=== PATIENT | female | born 1950 | race Caucasian/White ===

== ENCOUNTER 2020-09-19 06:25 | Day surgery (SDC) | payer MEDICARE, OTHER, SELFPAY ==
[2020-09-13 15:18] VITALS: BMI 37.5
--- NOTE | 2020-09-15 08:20 | MHC.SHP ---
Pre-Procedural Eval Section A The patient is an INPATIENT: No The History & Physical has been completed within 30 days and I have reviewed it.: Yes Section B Chief Complaint: cataract Allergies: Allergies Allergy/AdvReac Type Severity Reaction Status Date / Time No Known Allergies Allergy Verified 09/01/20 15:48 Plan Diagnosis/Plan: Unchanged I have reviewed the history and physical and performed a pertinent physical examination on my patient. No changes have occurred unless specified.
--- NOTE | 2020-09-16 09:11 | P.CONAN_ITS ---
Documented by User: Sara Alexander 09/16/20 09:12 HPI - Anesthesia Eval Consult details Narrative: 70yo F for Left Cataract Extraction IOL Insertion No prev cataract on record [facility] Past Medical History Medical History Allergic rhinitis Asthma Carotid artery stenosis Cataracts, both eyes COPD (chronic obstructive pulmonary disease) Depression GERD (gastroesophageal reflux disease) History of positive PPD Hypercholesterolemia Hypertension Obesity On supplemental oxygen therapy NAVIN on CPAP Positional vertigo Urinary, incontinence, stress female Varicose vein of leg Surgical History Surgical History Hx of Achilles tendon repair Hx of appendectomy Hx of arthroscopic knee surgery Hx of colonoscopy Hx of hysterectomy Social History Social History Smoking Status: Former smoker Smoking Quit Date: 1987 Use of substances other than those prescribed or required for medical reasons: No Advance Directives Information Provided: No Meds Allergies Allergy/AdvReac Type Severity Reaction Status Date / Time No Known Allergies Allergy Verified 09/01/20 15:48 Home Medications Medication Instructions Recorded Confirmed Last Taken Type albuterol sulfate 1 ml INHALATION Q6H 09/13/20 09/13/20 Unknown History albuterol sulfate [Ventolin HFA] 2 puff INHALATION QID PRN 09/13/20 09/13/20 Unknown History atorvastatin 1 tab PO BEDTIME 09/13/20 09/13/20 Unknown History famotidine 1 tab PO BEDTIME 09/13/20 09/13/20 Unknown History fluticasone propion-salmeterol 1 puff PO BID 09/13/20 09/13/20 Unknown History [Advair Diskus] melatonin 3 mg PO BEDTIME PRN 09/13/20 09/13/20 Unknown History umeclidinium [Incruse Ellipta] 1 puff INHALATION DAILY 09/13/20 09/13/20 Unknown History Exam Exam Date and Time: September 16, 2020910 Height,Weight and Vital Signs: Height 5 ft 6 in Weight 105.687 kg Assessment and Plan Assessment Anesthesia Assessment: Chart Reviewed Documented by User: Yolanda Barton 09/19/20 07:57 [facility] Past Medical History Medical History Allergic rhinitis Asthma Carotid artery stenosis Cataracts, both eyes COPD (chronic obstructive pulmonary disease) Depression GERD (gastroesophageal reflux disease) History of positive PPD Hypercholesterolemia Hypertension Obesity On supplemental oxygen therapy NAVIN on CPAP Positional vertigo Urinary, incontinence, stress female Varicose vein of leg Family History Family history of problems with anesthesia: No Surgical History Surgical History Hx of Achilles tendon repair Hx of appendectomy Hx of arthroscopic knee surgery Hx of colonoscopy Hx of hysterectomy History of Problems with Anesthesia: No Social History Social History Smoking Status: Former smoker Smoking Quit Date: 1987 Use of substances other than those prescribed or required for medical reasons: No Advance Directives Information Provided: No Meds Allergies Allergy/AdvReac Type Severity Reaction Status Date / Time No Known Allergies Allergy Verified 09/01/20 15:48 Home Medications Medication Instructions Recorded Confirmed Last Taken Type albuterol sulfate 1 ml INHALATION Q6H 09/13/20 09/13/20 Unknown History albuterol sulfate [Ventolin HFA] 2 puff INHALATION QID PRN 09/13/20 09/13/20 Unknown History atorvastatin 1 tab PO BEDTIME 09/13/20 09/13/20 Unknown History famotidine 1 tab PO BEDTIME 09/13/20 09/13/20 Unknown History fluticasone propion-salmeterol 1 puff PO BID 09/13/20 09/13/20 Unknown History [Advair Diskus] melatonin 3 mg PO BEDTIME PRN 09/13/20 09/13/20 Unknown History umeclidinium [Incruse Ellipta] 1 puff INHALATION DAILY 09/13/20 09/13/20 Unknown History Exam Height,Weight and Vital Signs: Vital Signs Temp Pulse Resp BP Pulse Ox 09/19/20 07:49 98.2 F 93 16 183/79 H 96 Airway Mallampati Class: II TM Dist: >3cm Neck ROM: Full Denture: Upper Heart: RRR Lungs: CTAB Assessment and Plan Assessment Anesthesia Assessment: Anesthesia Plan Discussed and Chart Reviewed Final Anesthetic Review NPO: Yes ASA Class: III Final Preanesthetic Review: No Changes in Pt Med Stat, Meds/Allgs Chart Reviewed, Consent Obtained/Reviewed and Anes Risks/Benef Reviewed Patient Risk: Intermediate Procedure Risk: Low Assessment/Block/Sedation in SS: Assess/Block/Sedation-SS Anesthetic Plan Anesthetic Plan: MAC: Disposition: Standard PACU
[2020-09-19 07:49] VITALS: BP 183/79; PULSE 93; RESP 16; TEMP 36.8; O2SAT 96
[2020-09-19] MEDS: Tetracaine HCl/PF 0.5% Oph Sol 4 ML DROPS 1 DROP EYE-LEFT (07:54)
[2020-09-19] MEDS: Tropicamide 1 % Ophth Sol 3 ML BTL 1 DROP EYE-LEFT ×3 (07:56→08:07)
[2020-09-19] MEDS: Lactated Ringers 500 ML 50 ML IV (07:57)
[2020-09-19] MEDS: Phenylephrine HCL 2.5% Oph SoL 2 ML BOTTLE 1 DROP EYE-LEFT ×3 (08:00→08:09)
--- NOTE | 2020-09-19 09:03 | HO.PNOPHT ---
Ophthalmology Procedure Procedure Date of Service: 09/19/20 Ophthalmology Viscoelastic: Healon Duet Dual Pack Pro Ophthalmology Lenses: TECNIS [id number] (21.5) Procedure Notes: PREOPERATIVE DIAGNOSIS: Decreased visual acuity left eye secondary to cataract POSTOPERATIVE DIAGNOSIS: Same PROCEDURE: Left cataract extraction with intraocular lens insertion SURGEON: Sai Soriano M.D. ANESTHESIA: Topical/MAC ESTIMATED BLOOD LOSS: None COMPLICATIONS: None After obtaining informed consent, the patient was brought to the operation room suite and placed in the supine position. After adequate sedation per anesthesia, topical drops of Tetracaine were given to the left eye. The eye was then prepped and draped in the usual sterile fashion. The operating room microscope was then positioned over the operative eye and a lid speculum placed. A paracentesis was created. Viscoelastic was then instilled into the anterior chamber. A three plane incision was then created temporally, utilizing a 2.85 mm keratome. Capsulotomy forceps were then utilized to create a circular tear capsulotomy. Hydrodissection and hydrodelineation were carried out until adequate mobilization of the nucleus occurred. Phacoemulsification was then utilized to remove the dense central nucleus followed by removal of the cortical material utilizing the automated aspiration irrigation unit. Viscoat elastic was instilled into the posterior capsular bag followed by placement of a posterior chamber intraocular lens without difficulty. The residual Viscoat elastic was then removed utilizing the automated IA machine. The wound was check and found to be watertight. The patient tolerated the procedure well and the lid speculum was removed. Intracameral injection of Vigamox 0.1 mL followed by a subtenon injection of Kenalog-40 0.2 mL were administered. The patient will be seen in the a.m.
[2020-09-19 09:04] VITALS: BP 165/93; PULSE 80; RESP 15; TEMP 36.4; O2SAT 97
[2020-09-19] MEDS: Acetaminophen 325 MG TABLET 650 MG PO (09:05)
== END 2020-09-19 10:14 | disposition home or self-care (01) ==
PROVIDERS: PCP Internal Medicine; Visit Provider Ophthalmology
PROC: (CPT 66985; principal; 2020-09-19 08:50)
DX: H25.12 Age-related nuclear cataract, left eye (principal); I10 Essential (primary) hypertension; Z79.899 Other long term (current) drug therapy
CPT/HCPCS: 66984; J2250; J3010; J3300; V2632

== ENCOUNTER 2020-10-17 06:10 | Day surgery (SDC) | payer MEDICARE, OTHER, SELFPAY ==
[2020-10-10 15:07] VITALS: BMI 37.5
--- NOTE | 2020-10-12 16:29 | MHC.SHP ---
Pre-Procedural Eval Section A The patient is an INPATIENT: No The History & Physical has been completed within 30 days and I have reviewed it.: Yes Section B Chief Complaint: Cataract Right Eye Allergies: Allergies Allergy/AdvReac Type Severity Reaction Status Date / Time No Known Allergies Allergy Verified 09/01/20 15:48 Plan Diagnosis/Plan: Unchanged I have reviewed the history and physical and performed a pertinent physical examination on my patient. No changes have occurred unless specified.
--- NOTE | 2020-10-14 09:14 | HO.ANESPROP2 ---
Documented by User: Sara Alexander 10/14/20 09:14 HPI - Anesthesia Eval Consult details Narrative: 70yo F for Right Cataract Extraction IOL Insertion PCP cleared Left eye 09/19/20 with Fent 50 / Midaz 1 PMFSH Past Medical History Medical History Allergic rhinitis Asthma Carotid artery stenosis Cataracts, both eyes COPD (chronic obstructive pulmonary disease) Depression GERD (gastroesophageal reflux disease) History of positive PPD Hypercholesterolemia Hypertension Obesity On supplemental oxygen therapy NAVIN on CPAP Positional vertigo Urinary, incontinence, stress female Varicose vein of leg Family History Family history of problems with anesthesia: No Surgical History Surgical History History of left cataract surgery Hx of Achilles tendon repair Hx of appendectomy Hx of arthroscopic knee surgery Hx of colonoscopy Hx of hysterectomy History of Problems with Anesthesia: No Social History Social History Smoking Status: Former smoker Smoking Quit Date: 1987 Use of substances other than those prescribed or required for medical reasons: No Are you DNR?: No Advance Directives Information Provided: No Recently lost weight without trying: No Eating poorly because of decreased appetite: No Nutrition Risks: No Nutritional Risk Meds Allergies Allergy/AdvReac Type Severity Reaction Status Date / Time No Known Allergies Allergy Verified 09/01/20 15:48 Home Medications Medication Instructions Recorded Confirmed Last Taken Type albuterol sulfate 1 ml INHALATION Q6H 09/13/20 10/10/20 10/17/20 History albuterol sulfate [Ventolin HFA] 2 puff INHALATION QID PRN 09/13/20 10/10/20 Unknown History atorvastatin 1 tab PO BEDTIME 09/13/20 10/10/20 Unknown History famotidine 1 tab PO BEDTIME 09/13/20 10/10/20 Unknown History fluticasone propion-salmeterol 1 puff PO BID 09/13/20 10/17/20 10/17/20 History [Advair Diskus] 500 melatonin 3 mg PO BEDTIME PRN 09/13/20 10/10/20 Unknown History umeclidinium [Incruse Ellipta] 1 puff INHALATION DAILY 09/13/20 10/10/20 10/17/20 History Exam Exam Date and Time: October 14, 2020 0914 Height,Weight and Vital Signs: Height 5 ft 6 in Weight 105.687 kg Assessment and Plan Assessment Anesthesia Assessment: Chart Reviewed Documented by User: Jada Patten 10/17/20 07:39 [facility] Past Medical History Medical History Allergic rhinitis Asthma Carotid artery stenosis Cataracts, both eyes COPD (chronic obstructive pulmonary disease) Depression GERD (gastroesophageal reflux disease) History of positive PPD Hypercholesterolemia Hypertension Obesity On supplemental oxygen therapy NAVIN on CPAP Positional vertigo Urinary, incontinence, stress female Varicose vein of leg Surgical History Surgical History History of left cataract surgery Hx of Achilles tendon repair Hx of appendectomy Hx of arthroscopic knee surgery Hx of colonoscopy Hx of hysterectomy Social History Social History Smoking Status: Former smoker Smoking Quit Date: 1987 Use of substances other than those prescribed or required for medical reasons: No Are you DNR?: No Advance Directives Information Provided: No Recently lost weight without trying: No Eating poorly because of decreased appetite: No Nutrition Risks: No Nutritional Risk Meds Allergies Allergy/AdvReac Type Severity Reaction Status Date / Time No Known Allergies Allergy Verified 09/01/20 15:48 Home Medications Medication Instructions Recorded Confirmed Last Taken Type albuterol sulfate 1 ml INHALATION Q6H 09/13/20 10/10/20 10/17/20 History albuterol sulfate [Ventolin HFA] 2 puff INHALATION QID PRN 09/13/20 10/10/20 Unknown History atorvastatin 1 tab PO BEDTIME 09/13/20 10/10/20 Unknown History famotidine 1 tab PO BEDTIME 09/13/20 10/10/20 Unknown History fluticasone propion-salmeterol 1 puff PO BID 09/13/20 10/17/20 10/17/20 History [Advair Diskus] 500 melatonin 3 mg PO BEDTIME PRN 09/13/20 10/10/20 Unknown History umeclidinium [Incruse Ellipta] 1 puff INHALATION DAILY 09/13/20 10/10/20 10/17/20 History Exam Airway Mallampati Class: III Denture: Upper Partial: Upper
[2020-10-17 06:28] VITALS: BP 145/81; PULSE 78; RESP 24; TEMP 36.1; O2SAT 95
[2020-10-17] MEDS: Tropicamide 1 % Ophth Sol 3 ML BTL 1 DROP EYE-RIGHT ×3 (06:34→06:36)
[2020-10-17] MEDS: Tetracaine HCl/PF 0.5% Oph Sol 4 ML DROPS 1 DROP EYE-RIGHT (06:34)
[2020-10-17] MEDS: Phenylephrine HCL 2.5% Oph SoL 2 ML BOTTLE 1 DROP EYE-RIGHT ×3 (06:35→06:37)
[2020-10-17] MEDS: Lactated Ringers 500 ML 50 ML IV (06:48)
[2020-10-17 07:36] VITALS: BP 169/76
--- NOTE | 2020-10-17 07:48 | HO.PNOPHT ---
Ophthalmology Procedure Procedure Date of Service: 10/17/20 Ophthalmology Viscoelastic: Healon Duet Dual Pack Pro Ophthalmology Lenses: TECNIS [id number] (20.5) Procedure Notes: PREOPERATIVE DIAGNOSIS: Decreased visual acuity right eye secondary to cataract POSTOPERATIVE DIAGNOSIS: Same PROCEDURE: Right cataract extraction with intraocular lens insertion SURGEON: Sai Soriano M.D. ANESTHESIA: Topical/MAC ESTIMATED BLOOD LOSS: None COMPLICATIONS: None After obtaining informed consent, the patient was brought to the operating room suite and placed in the supine position. After adequate sedation per anesthesia, topical drops of Tetracaine were given to the right eye. The eye was then prepped and draped in the usual sterile fashion. The operating room microscope was then positioned over the operative eye and a lid speculum placed. A paracentesis was created. Viscoelastic was then instilled into the anterior chamber. A three plane incision was then created temporally, utilizing a 2.85 mm keratome. Capsulotomy forceps were then utilized to create a circular tear capsulotomy. Hydrodissection and hydrodelineation were carried out until adequate mobilization of the nucleus occurred. Phacoemulsification was then utilized to remove the dense central nucleus followed by removal of the cortical material utilizing the automated aspiration irrigation unit. Viscoelastic was instilled into the posterior capsular bag followed by placement of a posterior chamber intraocular lens without difficulty. The residual Viscoelastic was then removed utilizing the automated IA machine. The wound was checked and found to be watertight. The patient tolerated the procedure well and the lid speculum was removed. Intracameral injection of Vigamox 0.1 mL followed by a subtenon injection of Kenalog-40 0.2 mL were administered. The patient will be seen in the a.m.
--- NOTE | 2020-10-17 07:50 | PC.NURSE ---
pt verbalized understanding of d/c
[2020-10-17 08:11] VITALS: BP 117/72; PULSE 73; RESP 15; TEMP 36.4; O2SAT 98
== END 2020-10-17 08:46 | disposition home or self-care (01) ==
PROVIDERS: PCP Internal Medicine; Visit Provider Ophthalmology
PROC: (CPT 66985; principal; 2020-10-17 07:50)
DX: H25.11 Age-related nuclear cataract, right eye (principal); H54.7 Unspecified visual loss; D31.31 Benign neoplasm of right choroid; J44.9 Chronic obstructive pulmonary disease, unspecified; I10 Essential (primary) hypertension; H81.10 Benign paroxysmal vertigo, unspecified ear; G47.33 Obstructive sleep apnea (adult) (pediatric); Z99.81 Dependence on supplemental oxygen; Z99.89 Dependence on other enabling machines and devices; Z79.899 Other long term (current) drug therapy; Z79.51 Long term (current) use of inhaled steroids; Z87.891 Personal history of nicotine dependence
CPT/HCPCS: 66984; J2250; J2405; J3010; J3300; V2632